=== PATIENT | female | born 1930 | race Caucasian/White ===

== ENCOUNTER → 2016-10-26 | Outpatient (CLI) | payer OTHER ==
[~2016-10-26] MED LIST: ADVAIR HFA120 INHALA IH; BACTRIM,SEPT1 TABLET PO; BETHANECHOL CHL10 MG PO; BETHANECHOL CHLO5 MG; BUTALB-APAP-CA1 EACH PO; BUTALBITAL COM1 EAC1 PO; BUTALBITAL-APA1 EACH PO; CELEBREX200 MG PO; CYANOCOBALAM1000 MCG PO; DICYCLOMINE HCL10 MG PO; ENDOCET 5-3251 EACH PO; ESCITALOPRAM OX10 MG PO; ESCITALOPRAM OXA5 MG PO; ESGIC 50-325-41 EAC1 PO; FIORICET,ESG1 TABLET PO; GABAPENTIN100 MG PO; HAIR, SKIN & N1 EAC1 PO; HYDROCODON-ACE1 EAC7 PO; INDOCIN50 MG PO; IRON325 M1 PO; KEFLEX500 MG PO; LEVAQUIN250 MG PO; LEVOFLOXACIN750 MG PO; LEVOTHYROXINE50 MCG PO; LEXAPRO20 MG PO; MOTRIN400 MG PO; NAPROSYN500 MG PO; OMEPRAZOLE20 MG PO; OXYCODONE HCL5 MG PO; PEPCID AC20 MG PO; PERCOCET 2.51 TABLET PO; PERCOCET 5/31 TABLET PO; PRAVACHOL10 MG PO; PRAVACHOL40 MG PO; PREDNISONE20 MG PO; PRILOSEC OTC20 MG PO; PRILOSEC20 MG PO; REFRESH TEARS15 ML BOTH EYES; SYNTHROID25 MCG PO; SYNTHROID50 MCG PO; SYSTANE 0.3-0.1 EACH BOTH EYES; TIROSINT50 MCG PO; TRAMADOL HCL50 MG PO; TYLENOL REGULA325 MG PO; URECHOLINE10 MG PO; VENTOLIN HFA18 GM IH; VITAMIN B122500 MCG PO; VITAMIN D-32000 UNI2 PO; VITAMIN D1000 INTUN PO; XANAX0.5 MG PO; XIFAXAN550 MG PO; ZOFRAN4 MG PO
== END | disposition home or self-care (01) ==
DX: R13.10 Dysphagia, unspecified (principal); K21.9 Gastro-esophageal reflux disease without esophagitis; J18.9 Pneumonia, unspecified organism; Z87.898 Personal history of other specified conditions; Z99.81 Dependence on supplemental oxygen
CPT/HCPCS: 92611 GN; G8996 GN; G8997 GN; G8998 GN

== ENCOUNTER 2017-06-25 14:33 | Inpatient (IN) | payer OTHER ==
[~2017-06-25] VITALS: Ht 157.5 cm; Wt 58.0 kg
[~2017-06-25 14:33] MED LIST changes: -TRAMADOL HCL50 MG PO; +ULTRAM50 MG PO; -VITAMIN D-32000 UNI2 PO; +Vitamin B-12 PO; +Vitamin D-3 PO
[2017-06-25 17:51] LABS: HEMATOCRIT 31.4 % (36.0-46.0); MCH 30.7 PG (29.0-34.0); MCHC 34.1 G/DL (30.0-36.0); MCV 90.2 FL (83-99); MEAN PLAT.VOLUME 10.8 uM^3 (9.5-12.4); PLATELET COUNT 135 K/uL (156-360); RBC DIS.WIDTH-CV 14.6 % (11.8-14.6); RBC DIS.WIDTH-SD 47.2 % (39-53); RED BLOOD COUNT 3.48 M/uL (3.80-5.20); WHITE BLOOD COUNT 12.1 K/uL (4.1-10.2)
[2017-06-25 18:00] LABS: CHLORIDE 102 mEq/L (99-109); POTASSIUM 3.3 mEq/L (3.7-5.4); SODIUM 139 mEq/L (136-147)
[2017-06-25 18:02] LABS: GLUCOSE 105 mg/dL (70-99)
[2017-06-25 18:04] LABS: ANION GAP 14 MEQ/L (2-14); TOTAL BILIRUBIN 0.6 mg/dL (0.0-1.0)
[2017-06-25 18:06] LABS: ALKALINE PHOSPHATASE 79 IU/L (3-129); GFR ESTIMATE (CALCULATED) > 59 mL/min/
[2017-06-25 18:08] LABS: UREA NITROGEN (BUN) 6 mg/dL (9-23)
[2017-06-25 18:20] LABS: LIPASE 61 U/L (1.0-51.0)
[2017-06-25 19:03] LABS: ADD MIUA? YES; BILIRUBIN NEGATIVE; BLOOD SMALL; COLOR STRAW ((YELLOW)); GLUCOSE (STRIP) NEGATIVE; KETONES NEGATIVE; LEUKOCYTES NEGATIVE; NITRITE NEGATIVE; PROTEIN (STRIP) NEGATIVE; SPECIFIC GRAVITY 1.012 (1.000-1.030); UROBILINOGEN 0.2 MG/DL (0.2-1.0)
[2017-06-25 19:04] LABS: BACTERIA NONE SEEN /HPF; EPITHELIAL CELLS RARE /HPF; MUCUS NONE SEEN /LPF; RED BLOOD CELLS 0-5 /HPF (0-5); UCUL ADDED? NO; WHITE BLOOD CELLS NONE SEEN /HPF (0-5)
[2017-06-25 23:16] LABS: C-REACTIVE PROTEIN 26.1 MG/L (0-10); SAMPLE HEMOLYSIS CHECK 0; SAMPLE ICTERIC CHECK 0; SAMPLE LIPEMIA CHECK 0
[2017-06-26] VITALS (7 sets, daily range): BP systolic 100–128; BP diastolic 52–90
[2017-06-26 06:18] LABS: BASOPHIL COUNT 0.1 K/uL (0-0.1); EOSINOPHIL (%) 1.9 % (0-5); EOSINOPHIL COUNT 0.2 K/uL (0-0.3); HEMATOCRIT 25.2 % (36.0-46.0); IMMATURE GRANULOCYTE (%) 1.2 % (0.0-0.7); IMMATURE GRANULOCYTE COUNT 0.1 K/uL; INSTRUMENT ABS NEUTROPHIL CT 6.1 K/uL; LYMPHOCYTE COUNT 1.6 K/uL (1.0-2.8); MCH 31.7 PG (29.0-34.0); MCHC 34.1 G/DL (30.0-36.0); MEAN PLAT.VOLUME 11.3 uM^3 (9.5-12.4); MONOCYTE (%) 9.5 % (3-12); MONOCYTE COUNT 0.8 K/uL (0-0.8); NEUTROPHIL (%) 68.9 % (45-76); NEUTROPHIL COUNT 6.1 K/uL (1.8-6.4); PLATELET COUNT 107 K/uL (156-360); RBC DIS.WIDTH-CV 14.9 % (11.8-14.6); RBC DIS.WIDTH-SD 50.2 % (39-53); RED BLOOD COUNT 2.71 M/uL (3.80-5.20); WHITE BLOOD COUNT 8.9 K/uL (4.1-10.2)
[2017-06-26 06:21] LABS: ANION GAP 6 MEQ/L (2-14); CHLORIDE 108 MEQ/L (99-109); GFR ESTIMATE (CALCULATED) > 59 mL/min/; GLUCOSE 92 mg/dL (70-99); POTASSIUM 3.3 MEQ/L (3.7-5.4); SAMPLE HEMOLYSIS CHECK 0; SAMPLE ICTERIC CHECK 0; SAMPLE LIPEMIA CHECK 0; SODIUM 139 MEQ/L (136-147); UREA NITROGEN (BUN) 5 mg/dL (9-23)
[2017-06-26 12:22] LABS: POINT-OF-CARE METER ID UU13113831
[2017-06-26] MEDS ORDERED: PREDNISONE5 MG PO (13:22)
[2017-06-26 13:37] LABS: HEMATOCRIT 25.5 % (36.0-46.0); MCV 93.8 FL (83-99)
[2017-06-27 03:58] VITALS: BP 115/63
[2017-06-27 05:33] LABS: POINT-OF-CARE METER ID UU14208750
[2017-06-27 06:59] LABS: HEMATOCRIT 27.6 % (36.0-46.0); MCH 30.3 PG (29.0-34.0); MCHC 32.6 G/DL (30.0-36.0); MCV 92.9 FL (83-99); MEAN PLAT.VOLUME 11.8 uM^3 (9.5-12.4); PLATELET COUNT 129 K/uL (156-360); RBC DIS.WIDTH-CV 14.5 % (11.8-14.6); RBC DIS.WIDTH-SD 48.6 % (39-53); RED BLOOD COUNT 2.97 M/uL (3.80-5.20); WHITE BLOOD COUNT 8.5 K/uL (4.1-10.2)
[2017-06-27 07:20] VITALS: BP 132/82
[2017-06-27 07:22] LABS: ANION GAP 8 MEQ/L (2-14); CHLORIDE 107 MEQ/L (99-109); GFR ESTIMATE (CALCULATED) > 59 mL/min/; GLUCOSE 79 mg/dL (70-99); SAMPLE HEMOLYSIS CHECK 0; SAMPLE ICTERIC CHECK 0; SAMPLE LIPEMIA CHECK 0; SODIUM 139 MEQ/L (136-147); UREA NITROGEN (BUN) 5 mg/dL (9-23)
[2017-06-27 07:23] LABS: POTASSIUM 4.1 MEQ/L (3.7-5.4)
[2017-06-27 11:15] VITALS: BP 138/71
[2017-06-27 11:44] LABS: POINT-OF-CARE METER ID UU14208750
[2017-06-27 15:32] VITALS: BP 156/74
[2017-06-27 17:36] LABS: POINT-OF-CARE METER ID UU14208750
[2017-06-27 19:30] LABS: INTERNAL CONTROL VALID? YES
[2017-06-27 19:52] VITALS: BP 154/70
[2017-06-27 21:58] LABS: POINT-OF-CARE METER ID UU14162508
[2017-06-28 00:42] VITALS: BP 184/81
[2017-06-28 04:26] VITALS: BP 146/70
[2017-06-28 06:25] LABS: POINT-OF-CARE METER ID UU14208750
[2017-06-28 07:29] VITALS: BP 124/66
[2017-06-28] MEDS ORDERED: CIPRO500 MG PO (09:36)
[2017-06-28] MEDS ORDERED: FLAGYL500 MG PO (09:36)
== END 2017-06-28 12:17 | disposition home or self-care (01) | DRG 379 ==
LOC: EME 14:33 → 5WEST 22:21 → EDOF 22:21 → ENRESERV 22:23 → 5WEST 06-26 01:08 → ENRESERV 06-26 16:33 → 2EAST 06-26 22:50
PROVIDERS: Hospitalist; Internal Medicine; Physician Assistant; Physician Assistant Medical
DX: K57.33 Diverticulitis of large intestine without perforation or abscess with bleeding (principal); E86.0 Dehydration; E87.6 Hypokalemia; D64.9 Anemia, unspecified; E78.5 Hyperlipidemia, unspecified; J44.9 Chronic obstructive pulmonary disease, unspecified; D69.6 Thrombocytopenia, unspecified; E03.9 Hypothyroidism, unspecified; K21.9 Gastro-esophageal reflux disease without esophagitis; E04.1 Nontoxic single thyroid nodule; F32.9 Major depressive disorder, single episode, unspecified; G89.29 Other chronic pain; M25.559 Pain in unspecified hip; J84.10 Pulmonary fibrosis, unspecified; K58.9 Irritable bowel syndrome, unspecified; G43.909 Migraine, unspecified, not intractable, without status migrainosus; Z96.642 Presence of left artificial hip joint; Z80.0 Family history of malignant neoplasm of digestive organs; Z86.718 Personal history of other venous thrombosis and embolism; Z85.819 Personal history of malignant neoplasm of unspecified site of lip, oral cavity, and pharynx
CPT/HCPCS: 74177; 80048; 80053; 81003; 82272; 82948; 83605; 83690; 85014; 85018; 85025; 85027; 86140; 87493; 94799; 99202; 99281; 99285; G0378; J0744; J1644; J1885; J2270; J2405; J3010; J7030; S0030

== ENCOUNTER 2017-07-11 12:33 | Emergency (ER) | payer OTHER ==
[~2017-07-11] VITALS: Ht 157.5 cm; Wt 56.0 kg
[~2017-07-11 12:33] MED LIST changes: +CIPRO500 MG PO; +FLAGYL500 MG PO; +PREDNISONE5 MG PO
[2017-07-11 12:53] LABS: HEMATOCRIT 31.5 % (36.0-46.0); MCH 30.6 PG (29.0-34.0); MCHC 33.7 G/DL (30.0-36.0); MEAN PLAT.VOLUME 11.3 uM^3 (9.5-12.4); PLATELET COUNT 166 K/uL (156-360); RBC DIS.WIDTH-CV 14.6 % (11.8-14.6); RBC DIS.WIDTH-SD 47.8 % (39-53); RED BLOOD COUNT 3.46 M/uL (3.80-5.20); WHITE BLOOD COUNT 11.4 K/uL (4.1-10.2)
[2017-07-11 13:02] LABS: CHLORIDE 103 mEq/L (99-109); SODIUM 136 mEq/L (136-147)
[2017-07-11 13:04] LABS: GLUCOSE 126 mg/dL (70-99)
[2017-07-11 13:05] LABS: ADD MIUA? NO; BILIRUBIN NEGATIVE; BLOOD NEGATIVE; COLOR YELLOW ((YELLOW)); GLUCOSE (STRIP) NEGATIVE; KETONES NEGATIVE; LEUKOCYTES NEGATIVE; NITRITE NEGATIVE; PROTEIN (STRIP) NEGATIVE; UROBILINOGEN 0.2 MG/DL (0.2-1.0)
[2017-07-11 13:05] LABS: ANION GAP 9 MEQ/L (2-14)
[2017-07-11 13:06] LABS: TOTAL BILIRUBIN 0.4 mg/dL (0.0-1.0)
[2017-07-11 13:08] LABS: ALKALINE PHOSPHATASE 63 IU/L (3-129); GFR ESTIMATE (CALCULATED) > 59 mL/min/
[2017-07-11 13:09] LABS: UREA NITROGEN (BUN) 11 mg/dL (9-23)
[2017-07-11 13:11] LABS: LIPASE 38 U/L (1.0-51.0)
[2017-07-11 13:58] LABS: UCUL ADDED? NO
[2017-07-11] MEDS ORDERED: COLACE100 MG PO (15:44)
[2017-07-11] MEDS ORDERED: ADULT GLYCERIN1 EACH PR (15:45)
[2017-07-11 16:18] VITALS: BP 116/68
== END 2017-07-11 16:20 | disposition home or self-care (01) ==
LOC: EME 12:33
DX: K57.30 Diverticulosis of large intestine without perforation or abscess without bleeding (principal); K59.00 Constipation, unspecified; Z96.642 Presence of left artificial hip joint; Z88.6 Allergy status to analgesic agent
CPT/HCPCS: 74177; 80053; 81003; 83690; 85027; 99281; 99285; J2405; J3010; J7030

== ENCOUNTER 2017-11-23 15:51 | Observation (INO) | payer OTHER ==
[~2017-11-23] VITALS: Ht 185.4 cm; Wt 84.0 kg
[~2017-11-23 15:51] MED LIST changes: +ADULT GLYCERIN1 EACH PR; +COLACE100 MG PO
[2017-11-23 17:02] LABS: BASOPHIL (%) 0.9 % (0-1); BASOPHIL COUNT 0.1 K/uL (0-0.1); EOSINOPHIL (%) 0.5 % (0-5); EOSINOPHIL COUNT 0.1 K/uL (0-0.3); HEMOGLOBIN 11.9 G/DL (11.9-15.5); IMMATURE GRANULOCYTE (%) 1.7 % (0.0-0.7); LYMPHOCYTE (%) 21.2 % (15-42); LYMPHOCYTE COUNT 2.8 K/uL (1.0-2.8); MCH 30.5 PG (29.0-34.0); MCV 89.7 FL (83-99); MONOCYTE (%) 9.6 % (3-12); MONOCYTE COUNT 1.3 K/uL (0-0.8); NEUTROPHIL (%) 66.1 % (45-76); NEUTROPHIL COUNT 8.8 K/uL (1.8-6.4); PLATELET COUNT 156 K/uL (156-360); RBC DIS.WIDTH-CV 15.4 % (11.8-14.6); WHITE BLOOD COUNT 13.2 K/uL (4.1-10.2)
[2017-11-23 17:15] LABS: ALBUMIN 4.3 g/dL (3.2-4.8); CHLORIDE 102 mEq/L (99-109); POTASSIUM 4.3 mEq/L (3.7-5.4); SODIUM 139 mEq/L (136-147)
[2017-11-23 17:18] LABS: GLUCOSE 104 mg/dL (70-99); TOTAL PROTEIN 8.3 g/dL (6.4-8.3)
[2017-11-23 17:20] LABS: TOTAL BILIRUBIN 0.3 mg/dL (0.0-1.0)
[2017-11-23 17:21] LABS: ALKALINE PHOSPHATASE 69 IU/L (3-129); GFR ESTIMATE (CALCULATED) 56 mL/min/
[2017-11-23 17:22] LABS: UREA NITROGEN (BUN) 17 mg/dL (9-23)
[2017-11-23 17:23] LABS: AST (GOT) 18 IU/L (2-34)
[2017-11-23 17:24] LABS: ALT (GPT) 11 IU/L (3-49)
[2017-11-23 17:30] LABS: TROP-I INTERPRETATION NEGATIVE; TROPONIN-I < 0.01 ng/mL (0.0-0.30)
[2017-11-23 17:53] LABS: APPEARANCE CLEAR ((CLEAR)); BILIRUBIN NEGATIVE; BLOOD NEGATIVE; COLOR YELLOW ((YELLOW)); GLUCOSE (STRIP) NEGATIVE; KETONES NEGATIVE; LEUKOCYTES NEGATIVE; NITRITE NEGATIVE; PROTEIN (STRIP) NEGATIVE; SPECIFIC GRAVITY 1.013 (1.000-1.030); UCUL ADDED? NO; UROBILINOGEN 0.2 MG/DL (0.2-1.0)
[2017-11-23 20:15] LABS: TROP-I INTERPRETATION NEGATIVE; TROPONIN-I < 0.01 ng/mL (0.0-0.30)
[2017-11-23 23:15] VITALS: BP 159/74
[2017-11-24 04:33] VITALS: BP 109/50
[2017-11-24 06:41] LABS: CHLORIDE 106 MEQ/L (99-109); CREATININE 0.9 MG/DL (0.6-1.3); GFR ESTIMATE (CALCULATED) > 59 mL/min/; GLUCOSE 89 mg/dL (70-99); POTASSIUM 3.7 MEQ/L (3.7-5.4); SODIUM 137 MEQ/L (136-147); UREA NITROGEN (BUN) 12 mg/dL (9-23)
[2017-11-24 07:17] LABS: BASOPHIL (%) 0.8 % (0-1); BASOPHIL COUNT 0.1 K/uL (0-0.1); EOSINOPHIL (%) 0.8 % (0-5); EOSINOPHIL COUNT 0.1 K/uL (0-0.3); HEMATOCRIT 27.4 % (36.0-46.0); IMMATURE GRANULOCYTE (%) 1.5 % (0.0-0.7); LYMPHOCYTE (%) 25.5 % (15-42); MCH 29.5 PG (29.0-34.0); MCHC 32.8 G/DL (30.0-36.0); MCV 89.8 FL (83-99); MONOCYTE (%) 8.5 % (3-12); MONOCYTE COUNT 0.7 K/uL (0-0.8); NEUTROPHIL (%) 62.9 % (45-76); PLATELET COUNT 134 K/uL (156-360); RBC DIS.WIDTH-CV 15.3 % (11.8-14.6); RBC DIS.WIDTH-SD 49.9 % (39-53); WHITE BLOOD COUNT 7.9 K/uL (4.1-10.2)
[2017-11-24 07:33] LABS: RED BLOOD COUNT 3.05 M/uL (3.80-5.20)
[2017-11-24 08:04] VITALS: BP 126/60
[2017-11-24 11:26] VITALS: BP 138/70
[2017-11-24 16:01] VITALS: BP 128/60
[2017-11-24 19:00] VITALS: BP 120/57
[2017-11-24] MEDS ORDERED: ALPRAZOLAM0.5 MG PO (19:02)
[2017-11-25 00:05] VITALS: BP 117/56; BP 17/56
[2017-11-25 04:09] VITALS: BP 115/58
[2017-11-25] MEDS ORDERED: DOCUSATE SODIU100 MG PO (09:18)
[2017-11-25] MEDS ORDERED: METAMUCIL PACK3.4 GM PO (09:18)
[2017-11-25] MEDS ORDERED: BENTYL20 MG PO (09:18)
[2017-11-25 09:28] LABS: HEMATOCRIT 29.1 % (36.0-46.0); HEMOGLOBIN 9.6 G/DL (11.9-15.5); MCH 29.7 PG (29.0-34.0); MCV 90.1 FL (83-99); PLATELET COUNT 133 K/uL (156-360); RBC DIS.WIDTH-CV 15.1 % (11.8-14.6); RBC DIS.WIDTH-SD 49.1 % (39-53); RED BLOOD COUNT 3.23 M/uL (3.80-5.20); WHITE BLOOD COUNT 7.7 K/uL (4.1-10.2)
[2017-11-25 09:44] LABS: CHLORIDE 105 MEQ/L (99-109); CREATININE 0.9 MG/DL (0.6-1.3); GFR ESTIMATE (CALCULATED) > 59 mL/min/; GLUCOSE 95 mg/dL (70-99); MAGNESIUM 2.2 mg/dl (1.3-2.7); POTASSIUM 3.9 MEQ/L (3.7-5.4); SODIUM 140 MEQ/L (136-147); UREA NITROGEN (BUN) 11 mg/dL (9-23)
[2017-11-25 09:45] VITALS: BP 123/61
[2017-11-25 10:02] LABS: FERRITIN 23 NG/ML (10-291)
[2017-11-25 11:58] LABS: C DIFF TOXIN NEGATIVE (NEGATIVE)
[2017-11-25 12:12] VITALS: BP 131/67
[2017-11-25 14:42] LABS: IRON 169 MCG/DL (35-150); TRANSFERRIN (TIBC) 212.8 mg/dL (215-380); TRANSFERRIN SATUR. 79 % (20-55)
[2017-11-25 15:36] VITALS: BP 123/61
== END 2017-11-25 16:30 | disposition home or self-care (01) ==
LOC: EME 15:51 → EDOF 20:53 → 5WEST 20:53 → ENRESERV 21:06 → 5WEST 23:15
PROVIDERS: Hospitalist; Internal Medicine; Internal Medicine Gastroenterology; Physician Assistant
DX: R10.9 Unspecified abdominal pain (principal); R55 Syncope and collapse; R11.0 Nausea; R19.7 Diarrhea, unspecified; D64.9 Anemia, unspecified; K59.00 Constipation, unspecified; R50.9 Fever, unspecified; K21.9 Gastro-esophageal reflux disease without esophagitis; K22.70 Barrett's esophagus without dysplasia; K57.90 Diverticulosis of intestine, part unspecified, without perforation or abscess without bleeding; Z85.89 Personal history of malignant neoplasm of other organs and systems; G43.909 Migraine, unspecified, not intractable, without status migrainosus; E78.5 Hyperlipidemia, unspecified; J44.9 Chronic obstructive pulmonary disease, unspecified; J84.10 Pulmonary fibrosis, unspecified; Z86.718 Personal history of other venous thrombosis and embolism; E04.1 Nontoxic single thyroid nodule; D69.6 Thrombocytopenia, unspecified; K58.9 Irritable bowel syndrome, unspecified; Z90.49 Acquired absence of other specified parts of digestive tract; Z96.649 Presence of unspecified artificial hip joint; Z77.22 Contact with and (suspected) exposure to environmental tobacco smoke (acute) (chronic); Z88.5 Allergy status to narcotic agent; Z88.8 Allergy status to other drugs, medicaments and biological substances; Z80.0 Family history of malignant neoplasm of digestive organs; Z82.49 Family history of ischemic heart disease and other diseases of the circulatory system
CPT/HCPCS: 74177; 80048; 80053; 81003; 82728; 83540; 83735; 84466; 84484; 85025; 85027; 87493; 87506; 93005; 94799; 99281; 99285; G0378; J1644; J2405; J7030; S0028